=== PATIENT | female | born 1985 | race Two or more races ===

== ENCOUNTER 2023-07-19 05:32 | Day surgery (SDC) | payer OTHER | END 2023-07-19 09:25 | disposition home or self-care (01) | LOC: AMB-ENDOS 05:32 | PROVIDERS: ATTEND Surgery | DX: K29.00 Acute gastritis without bleeding (principal); K44.9 Diaphragmatic hernia without obstruction or gangrene; R10.13 Epigastric pain; E66.01 Morbid (severe) obesity due to excess calories; Z20.822 Contact with and (suspected) exposure to COVID-19 ==